=== PATIENT | female | born 1980 | race Two or more races ===

== ENCOUNTER 2016-03-29 22:25 | Emergency (ER) | payer OTHER ==
[2016-03-29] MEDS ORDERED: NS 1,000 ML IV ONE (23:02)
[2016-03-29 23:08] LABS: % IMMATURE GRANULYOCYTES 0.4 % (0.0-1.1); ABSOLUTE IMMATURE GRANULOCYTES 0.03 10^3/uL (0.00-0.10); ADD DIFF? NO; ADD MORPH? NO; ADD SCAN? NO; ATYPICAL LYMPHOCYTE FLAG 10 (0-99); FRAGMENT RBC FLAG 0 (0-99); HEMATOCRIT 41.2 % (38.0-47.0); LEFT SHIFT FLG 0 (0-99); LIPEMIA HEMOLYSIS FLAG 90 (0-99); MEAN CELL HEMOGLOBIN 28.2 pg (27.9-34.1); MEAN CELL VOLUME 83.1 fL (81.5-99.8); MEAN PLATELET VOLUME 9.2 fL (8.7-11.7); PLATELET CLUMPS FLAG 0 (0-99); PLATELET COUNT 273 10^3/uL (150-400); RED BLOOD CELL COUNT 4.96 10^6/uL (4.18-5.33); RED CELL DISTRIBUTION WIDTH 12.9 % (11.5-15.2)
[2016-03-29] MEDS ORDERED: HYDROmorphONE/DILAUDID 1 MG/ML SYR IVP ONE (23:12)
[2016-03-29] MEDS ORDERED: ONDANSETRON 4 MG/2 ML VIAL IVP ONE (23:12)
[2016-03-29 23:19] LABS: ALANINE AMINOTRANSFERASE 40 IU/L (9-52); ALBUMIN 4.2 g/dL (3.5-5.0); ALKALINE PHOSPHATASE 89 IU/L (38-126); ANION GAP 13 mEq/L (8-16); ASPARTATE AMINOTRANSFERASE 23 IU/L (14-46); BILIRUBIN,TOTAL 0.6 mg/dL (0.1-1.4); BILIRUBIN-CONJUGATED 0.2 mg/dL (0.0-0.5); BILIRUBIN-UNCONJUGATED 0.4 mg/dL (0.0-1.1); CALCIUM 9.3 mg/dL (8.5-10.4); CARBON DIOXIDE 23 mEq/l (22-31); CHLORIDE 103 mEq/L (97-110); CREATININE 0.5 mg/dL (0.6-1.0); GLOMERULAR FILTRATION RATE > 60; GLUCOSE 109 mg/dL (70-100); POTASSIUM 3.8 mEq/L (3.5-5.2); SODIUM 139 mEq/L (134-144); TOTAL PROTEIN 8.1 g/dL (6.3-8.2)
[2016-03-29 23:20] LABS: INR 1.07 (0.83-1.16); PROTIME(PATIENT) 13.8 SEC (12.0-15.0)
[2016-03-29 23:21] LABS: APTT 25.8 SEC (23.0-38.0)
--- NOTE | 2016-03-29 23:24 | EDPHY ---
H & P Stated Complaint: vaginal bleeding with clots since this am. 3 pads per hour HPI/ROS: CHIEF COMPLAINT: Vaginal bleeding, pelvic pain HISTORY OF PRESENT ILLNESS: vaginal bleeding since 10:00 a.m. this morning associated with pelvic pain. She notes a sudden onset of vaginal bleeding cramping pain that radiates to the back. Moderate to severe pain bleeding is heavy with clots at times. 1-3 pads per hour that time. No chest pain. Some lightheadedness and near syncope but no syncope. Last menstrual period was in January, which she is on the Depo shot. She has no known . She has a with 2 ectopics remotely. She has an OB physician in [facility] but she does know her name. She has no fever or chills. No cough or congestion. No trauma. No dyspareunia recently. No other associated complaints or modifying factors. She does not take any blood thinners REVIEW OF SYSTEMS: Ten systems reviewed and are negative unless otherwise noted in the HPI EXAMINATION: General Appearance: Alert, no distress Head: normocephalic, atraumatic Eyes: Pupils equal and round, no conjunctival pallor or injection ENT, Mouth: Mucous membranes moist. No lesions Neck: Normal inspection, supple, non-tender Respiratory: Lungs are clear to auscultation. No rhonchi, wheezing or crackles Cardiovascular: tachycardic rate with regular rhythm. pulse is intact distally. Good signs of perfusion. Gastrointestinal: Abdomen is soft And tender in the suprapubic region. No CVA tenderness.No tympany. No rigidity. Non-acute abdomen. 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 No cervical motion tenderness. The cervix Os is open approximately 1 cm. No abnormality in the appearance otherwise. No purulence. some blood pooled in the adnexa. Tenderness of the uterus. No adnexal tenderness. Neurological: A&O, nonfocal, normal gait Skin: Warm and dry, no rash Extremities: Nontender, no pedal edema Psychiatric: Mood and affect normal DIFFERENTIAL DIAGNOSES: Including but not limited to Ectopic , torsion, dysfunctional uterine bleeding, miscarriage, demise MDM: 11:25 p.m. pelvic pain with vaginal bleeding since 10:00 a.m.. 1-3 pads per hour at times. Some lightheadedness but no syncope. Occasional chest discomfort with this. She does note passing of clots as well. She feels like this is when she has had her ectopics in the past. No known . Depo-Medrol in November but none since. test was returned as negative, and I have ordered a stat ultrasound of the pelvis to rule out torsion and other etiologies. She remains hemodynamically stable with mild tachycardia. Pain medication, IV fluid and Zofran have been ordered. 11:35 p.m. she remains tachycardic with feeling better with the Dilaudid that was being administered. She has IV fluids administered as well. She is not hypotensive. She is awake and alert and in no acute distress. Ultrasound is at bedside at this time performing a pelvic ultrasound 12:05 a.m. Ultrasound has been read as no torsion. There is some thickening of the endometrium at 10 mm. There is a 13 mm endocervical cyst of uncertain etiology. No acute findings. Pelvic exam has been performed with a female substation operator conversion. The cervical os is open at 1 cm. There is bleeding noted. There is no friability or purulence. No cervical motion tenderness. The uterus is tenderness but smooth. CT scan has been ordered for further delineation of this abdominal pelvic pain. 1:10 a.m. notified by Radiology that there are no acute findings on CT scan of the abdomen pelvis. Specifically no appendicitis, pelvic fluid or abnormality of the pelvis. I have paged OB physician and I am awaiting their call to Discuss the case and outpatient management. 1:45 a.m. I have discussed the case with Dr. Linares, Ob. We discussed all aspects of the case. She informed me that this is likely due to the depth hole wearing off. She asked me to inform the patient that she is no longer on control needs to be using a back up method for the next 30 days. She recommends discharge home with pain medication, 35 mcg estrogen oral contraceptive pill. She would like to see the patient next week in her office to discuss further management of her bleeding, pain in the endocervical nodule. I discussed all this with the patient she is comfortable with this plan. Her pain is significantly improved but not resolved. She is comfortable being discharged home on the above treatment. ED Precautions: Worsening pain. Fever. Bloody stools. Bloody emesis. Constipation or diarrhea. Bleeding greater than 1 pad per hour SUPERVISION: Patient was evaluated in conjunction with the supervising physician. Please see their note for details. 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 Fibromyalgia - Social History Smoking Status: Never smoked Constitutional: Initial Vital Signs Temperature (C) 98.6 F 03/29/16 22:34 Heart Rate 108 H 03/29/16 22:34 Respiratory Rate 16 03/29/16 22:34 Blood Pressure 160/102 H 03/29/16 22:34 O2 Sat (%) 97 03/29/16 22:34 O2 Delivery Mode Nasal Cannula O2 (L/minute) 2 Allergies/Adverse Reactions: hydrocodone Allergy (Verified 10/24/15 19:13) Home Medications: Medication Instructions Recorded Lisinopril/Hctz 20/12.5MG 1 ea PO DAILY 09/13/15 [Zestoretic/Prinzide 20/12.5MG (*)] Ergocalciferol [Vitamin D2 (*)] 50,000 unit PO SA 12/04/15 Multivitamins [Multivitamin (*)] 1 each PO DAILY 12/04/15 medroxyPROGESTERone [Depo-Provera 150 mg IM Q90D 12/04/15 150 mg/ml (*)] ALPRAZolam [Xanax 0.5 MG (*)] 0.25 mg PO DAILY PRN #0 tab 12/06/15 DULoxetine [Cymbalta 30 MG (*)] 30 mg PO DAILY #30 cap 12/06/15 DULoxetine [Cymbalta 60 MG (*)] 60 mg PO DAILY #30 cap 12/06/15 Ergocalciferol [Vitamin D2 (*)] 50,000 i.unit PO Sa #0 cap 12/06/15 Hydrochlorothiazide [HCTZ (*)] 12.5 mg PO DAILY #30 cap 12/06/15 SUMAtriptan [Imitrex 25 MG (*)] 50 mg PO ONCE PRN #0 tab 12/06/15 traMADol [Ultram 50 mg (*)] 50 mg PO DAILY PRN #0 tab 12/06/15 Norethindrone-Ethinyl Estrad 1 each PO DAILY #28 tablet 03/30/16 [Ovcon-35] Ondansetron Odt [Zofran Odt 4 mg 4 mg PO Q4 PRN #12 tab 03/30/16 (*)] oxyCODONE HCL/ACETAMINOPHEN 1 each PO Q4-6PRN PRN #20 tablet 03/30/16 [Percocet 5-325 mg Tablet] Medical Decision Making - Data Points Laboratory Results: Laboratory Results 03/29/16 22:50 03/29/16 22:50 03/29/16 03/29/16 23:25 22:50 WBC 7.63 10^3/uL (3.80-9.50) RBC 4.96 10^6/uL (4.18-5.33) Hgb 14.0 g/dL (12.6-16.3) Hct 41.2 % (38.0-47.0) MCV 83.1 fL (81.5-99.8) MCH 28.2 pg (27.9-34.1) MCHC 34.0 g/dL (32.4-36.7) RDW 12.9 % (11.5-15.2) Plt Count 273 10^3/uL (150-400) MPV 9.2 fL (8.7-11.7) Neut % (Auto) 57.9 % (39.3-74.2) Lymph % (Auto) 34.2 % (15.0-45.0) Gove % (Auto) 5.2 % (4.5-13.0) Eos % (Auto) 1.8 % (0.6-7.6) Baso % (Auto) 0.5 % (0.3-1.7) Nucleat RBC Rel Count 0.0 % (0.0-0.2) Absolute Neuts (auto) 4.41 10^3/uL (1.70-6.50) Absolute Lymphs (auto) 2.61 10^3/uL (1.00-3.00) Absolute Monos (auto) 0.40 10^3/uL (0.30-0.80) Absolute Eos (auto) 0.14 10^3/uL (0.03-0.40) Absolute Basos (auto) 0.04 10^3/uL (0.02-0.10) Absolute Nucleated RBC 0.00 10^3/uL (0-0.01) Immature Gran % 0.4 % (0.0-1.1) Immature Gran # 0.03 10^3/uL (0.00-0.10) PT 13.8 SEC (12.0-15.0) INR 1.07 (0.83-1.16) APTT 25.8 SEC (23.0-38.0) Sodium 139 mEq/L (134-144) Potassium 3.8 mEq/L (3.5-5.2) Chloride 103 mEq/L (97-110) Carbon Dioxide 23 mEq/l (22-31) Anion Gap 13 mEq/L (8-16) BUN 10 mg/dL (7-23) Creatinine 0.5 L mg/dL (0.6-1.0) Estimated GFR > 60 Glucose 109 H mg/dL (70-100) Calcium 9.3 mg/dL (8.5-10.4) Total Bilirubin 0.6 mg/dL (0.1-1.4) Conjugated Bilirubin 0.2 mg/dL (0.0-0.5) Unconjugated Bilirubin 0.4 mg/dL (0.0-1.1) AST 23 IU/L (14-46) ALT 40 IU/L (9-52) Alkaline Phosphatase 89 IU/L (38-126) Total Protein 8.1 g/dL (6.3-8.2) Albumin 4.2 g/dL (3.5-5.0) Lipase 160.0 IU/L (23-300) Beta HCG, Qual NEGATIVE Beta HCG, Quant < 2.39 mIU/mL (0-4.83) Trichomonas (Wet Prep) RARE BACTERIA Sally species DNA Pending C.trachomatis RNA (TMA) Pending Gardnerella DNA Probe Pending N.gonorrhoeae RNA (TMA) Pending Trichomonas DNA Probe Pending Patient ABO/Rh A POSITIVE Antibody Screen NEGATIVE Medications Given: Discontinued Medications Hydromorphone HCl (Dilaudid) 1 mg IVP EDNOW ONE Stop: 03/29/16 23:13 Last Admin: 03/29/16 23:17 Dose: 1 mg Hydromorphone HCl (Dilaudid) 1 mg IVP EDNOW ONE Stop: 03/30/16 00:26 Last Admin: 03/30/16 00:35 Dose: 1 mg Sodium Chloride (Ns) 1,000 mls @ 0 mls/hr IV ONCE ONE PRN Reason: Wide Open Stop: 03/29/16 23:03 Last Admin: 03/29/16 23:05 Dose: 1,000 mls Sodium Chloride (Ns) 1,000 mls @ 0 mls/hr IV ONCE ONE PRN Reason: Wide Open Stop: 03/30/16 00:27 Last Admin: 03/30/16 00:44 Dose: 1,000 mls Ondansetron HCl (Zofran) 4 mg IVP EDNOW ONE Stop: 03/29/16 23:13 Last Admin: 03/29/16 23:15 Dose: 4 mg Departure - Departure Clinical Impression: DUB (dysfunctional uterine bleeding), Endocervical polyp Condition: Good Instructions: Dysfunctional Uterine Bleeding (ED) Additional Instructions: Follow-up with Dr. Linares next week. Call her to set up her appointment. Pain medications, nausea medication as needed. Oral contraceptive pill last prescribed if needed. Use backup method for control for the next 30 days. Follow up with the emergency department should her bleeding returns or pain or worsen. Referrals: Virginia Child DO [Primary Care Provider] - As per Instructions Prescriptions: Norethindrone-Ethinyl Estrad [Ovcon-35] 1 each PO DAILY #28 tablet oxyCODONE HCL/ACETAMINOPHEN [Percocet 5-325 mg Tablet] 1 each PO Q4-6PRN PRN # 20 tablet PRN Reason: Pain, Moderate Ondansetron Odt [Zofran Odt 4 mg (*)] 4 mg PO Q4 PRN #12 tab PRN Reason: Nausea/Vomiting, Use 1st
[2016-03-30] MEDS ORDERED: HYDROmorphONE/DILAUDID 1 MG/ML SYR IVP ONE (00:25)
[2016-03-30] MEDS ORDERED: NS 1,000 ML IV ONE (00:26)
[2016-03-30] MEDS ORDERED: IOPAMIDOL (ISOVUE-300) 100 ML BTL IV ONE (00:29)
[2016-03-30 01:07] VITALS: TEMP 98.4
[2016-03-30 02:45] VITALS: BP 117/69; PULSE 106; RESP 16; O2SAT 97
--- NOTE | 2016-03-30 08:34 | US ---
Ultrasound of the pelvis. March 29, 2016. HISTORY: Pelvic pain. TECHNIQUE: Endovaginal. Pulsed and color flow Doppler evaluation of the ovaries was performed. FINDINGS: Uterus is midline. Endometrium measures 1.1 cm. There is a focal hypoechoic mass present in the endocervical canal measuring 1.3 x 0.6 cm in size with scattered areas of blood flow on Doppler investigation suggesting solid lesion. While this could represent a complex nabothian cyst, a solid e ndocervical mass is not excluded. Both ovaries are normal in size and shape with patent arterial blood flow, right measuring 2.7 x 2.1 x 1.8 cm and left 3.0 x 2.4 x 2.1 cm. No cul-de-sac fluid. IMPRESSION: 1. 1.3 cm mass within the endocervical canal. 2. Normal sonographic appearance of the ovaries. Results called to Gabriel Sorensen PA-C, at 11:45 PM.
--- NOTE | 2016-03-30 16:21 | CT ---
CT Scan of the Abdomen and Pelvis (With Contrast) March 30, 2016 at 0057 Hours History: Pelvic pain, vaginal bleeding, abdominal pain. Technique: Axial computed tomographic images of the abdomen and pelvis were obtained with the unevent ful intravenous administration of 90 mL Isovue-300 contrast. No oral or rectal contrast which limits the study. Dose reduction techniques were utilized. CT Abdomen Findings: Lung bases: Normal. Liver: Normal. Biliary system: No obstruction. Spleen: Normal. Pancreas: Normal. Adrenals: Normal. Kidneys: No obstruction or solid masses.. Abdominal aorta: No aneurysm. No bowel obstruction, ascites, or significant retroperitoneal lymphadenopathy. CT Pelvis Findings: Minimal free fluid in the pelvis. No adnexal masses. No evidence of inflammatory thickening of the appendix. Impressions: 1. Normal CT abdomen and pelvis with contrast enhancement. 2. No CT evidence of appendicitis, abscess, or bowel obstruction. Findings and recommendations discussed with emergency department physician, Gabriel Sorensen PA-C at 011 5 hours today. Final report concurs with initial preliminary interpretation.
[2016-03-31 13:06] LABS: CHLAMYDIA AMPLIFICATION GENPRB NEGATIVE (NEGATIVE)
== END 2016-03-30 02:54 | disposition home or self-care (01) ==
DX: N84.1 Polyp of cervix uteri (principal); I10 Essential (primary) hypertension
CPT/HCPCS: 96374; J1170; J2405; Q9967